=== PATIENT | female | born 1985 | race Hispanic/Latino ===

== ENCOUNTER 2016-10-25 00:28 | Emergency (ER) | payer OTHER ==
[2016-10-25] MEDS ORDERED: Lidocaine 1% w/Epinephrine 1:100K 30 ML VIAL ONE (01:45)
[2016-10-25 02:29] LABS: #Basophils 0.1 thou/uL (0.0-0.2); #Eosinphils 0.1 thou/uL (0.0-0.7); #Lymphocytes 2.7 thou/uL (1.20-3.40); #Monocytes 0.9 thou/uL (0.11-0.59); #Neutrophils 7.7 thou/uL (1.40-6.50); %Basophils 0.9 % (0.0-1.0); %Eosinophils 1.3 % (0.0-10.0); Hematocrit 37.8 % (36.0-47.0); White Blood Cell (WBC) Count 11.5 thou/uL (4.8-10.8)
[2016-10-25 02:35] LABS: ALT (SGPT) 20 U/L (0-55); AST (SGOT) 17 U/L (5-34); Alkaline Phosphatase 81 U/L (40-150); Anion Gap 13 mmol/L (10-20); BUN (Urea Nitrogen) 11 mg/dL (7.0-18.7); Bilirubin, Total 0.2 mg/dL (0.2-1.2); Calc. Creatinine Clearance 0 mL/min (70-130); Carbon Dioxide 23 mmol/L (22-29); Chloride 109 mmol/L (98-107); Estimated GFR-MDRD Greater than 90; Globulin 3.1 g/dL (2.4-3.5); Protein, Total 6.8 g/dL (6.0-8.3)
--- NOTE | 2016-10-25 02:53 | ERRECORD ---
[facility] EMERGENCY RECORD HPI FALL (01:07 DHAM) CHIEF COMPLAINT: Patient presents for evaluation of fall, from height less than 3 feet, landing on hard surface, landing on head, landing on back, landing on buttocks. HISTORIAN: History provided by patient, Additional history obtained from police, mirella has the video of the pt standing on the seat of a toilet and falling backwards landing on her buttocks and onto the occiput. no loc on the video. LOCATION: Symptoms are localized, most severe to c/o faustin, buttock pain bilat and left foot pain. QUALITY: Unable to describe the quality of the pain. TIME COURSE: Sudden onset of symptoms, 1, hours prior to arrival, There has been no change in the patient's symptoms over time. SEVERITY: Current severity of pain rated as 10/10. ASSOCIATED WITH: No associated neck pain, No associated chest pain, No associated abdominal pain, No associated back pain, No associated clavicle pain, No associated shoulder pain, No associated elbow pain, No associated wrist pain, No associated hand pain, No associated finger pain, Associated with hip pain, bilaterally, No associated knee pain, No associated ankle pain, Associated with foot pain, on the left, Associated with contusion(s), to the scalp, No associated laceration(s), No associated deformity, No associated alcohol use, No associated blurred vision, No associated inability to ambulate, No associated inability to bear weight, Associated with headache, No associated loss of consciousness, No associated near syncope, No associated numbness, No associated paresthesias, No associated syncope, No associated tingling, No associated weakness distal to injury, No associated vomiting, Pt has a h/o psychiatric illness and is difficult to get a hx out of. she denies menstrual cycle for 1 year but nurse at [facility] says she had one last month. EXACERBATED BY: Patient's condition exacerbated by movement all over causes pain. RELIEVED BY: Patient's condition relieved by nothing because patient has not tried anything for relief. RISK FACTORS: Risk factors for spinal injury, not applicable for this patient, Risk factors for intracranial bleed, not applicable for this patient. ROS (01:12 DHAM) CONSTITUTIONAL: Negative constitutional review of systems, Historian denies chills, denies fatigue, denies fever. EYES: Negative eye review of systems. ENT: Negative ears, nose, throat review of systems. CARDIOVASCULAR: Negative cardiovascular review of systems, Historian denies chest pain, denies diaphoresis, denies exercise intolerance, denies palpitations. RESPIRATORY: Negative respiratory review of systems, Historian &a-1R&a+25V*p+0X*[id number]*c202B*c15G*c2P*p-0X&a-25V&a+1R Name: Lee Ann Sanches : 1985 F31 MedRec: [id number] AcctNum: [id number] Prepared: Melba Oct 25, 2016 05:28 by Interface Page 1 of 5 pMD [facility] EMERGENCY RECORD denies cough, denies shortness of breath, denies sputum, denies wheezing. GI: Negative gastrointestinal review of systems, Historian denies abdominal pain, denies anorexia, denies appetite changes, denies nausea, denies vomiting. GENITOURINARY FEMALE: Historian denies dysuria, denies frequency, denies hesitancy, denies vaginal bleeding, denies vaginal discharge, denies vaginal itching. MUSCULOSKELETAL: Historian reports arthralgias, reports fall, reports injury, denies myalgias. c/o headache, buttock and left foot pain. SKIN: Negative skin review of systems, Historian denies rash, denies skin lesions. NEUROLOGIC: Negative neurologic review of systems, Historian denies confusion, denies headache. ENDOCRINE: Negative endocrine review of systems. HEMO/LYMPHATIC: Normal hematologic/lymphatic system review. ALLERGIC/IMMUNOLOGIC: Normal allergy/immunologic system review. PSYCHIATRIC: Historian reports emotional lability, is an MR patient and takes several antipsychotics. history is very suspect and variable though she appears ox3 and gives a good hx of the fall. PAST MEDICAL HISTORY (01:18 MEGS) MEDICAL HISTORY: Flu vaccine not up to date, Tetanus immunization up to date, Pneumococcal vaccine not up to date, Past medical history includes history of diabetes, Type I, Past medical history includes pulmonary disease, asthma. FEMALE SURGICAL HISTORY: Surgical history of cholecystectomy, Surgical history of tubal ligation, tooth extraction - upper left molar. PSYCHIATRIC HISTORY: Psychiatric history includes, depression, Psychiatric history includes, anxiety, schizophrenia. SOCIAL HISTORY: Patient denies alcohol use, Patient denies drug use, Patient is a former tobacco user, smoked cigarettes, Patient quit smoking in the past year, Lives, [facility]. KNOWN ALLERGIES No Known Allergies (Unconfirmed) No Known Drug Allergies CURRENT MEDICATIONS benztropine: TABLET : Strength - 1 mg : ORAL Patient Dose: 0.5 mg Oral once a day. (01:19 MEGS) sertraline: TABLET : Strength - 50 mg : ORAL &a-1R&a+25V*p+0X*[id number]*c202B*c15G*c2P*p-0X&a-25V&a+1R Name: Lee Ann Sanches : 1985 F31 MedRec: [id number] AcctNum: [id number] Prepared: Melba Oct 25, 2016 05:28 by Interface Page 2 of 5 pMD [facility] EMERGENCY RECORD Patient Dose: 50 mg Oral once a day. (01:20 MEGS) Latuda: TABLET : Strength - 60 mg : ORAL Patient Dose: 1 tab(s) Oral once a day. (01:20 MEGS) VITAL SIGNS VITAL SIGNS: BP: 128/84, Pulse: 65, Resp: 16, Temp: 97.9 (Oral), Pain: 10, O2 sat: 100 on Room Air, Time: 10/25/2016 00:31. (00:31 MEGS) BP: 124/84, Pulse: 64, Resp: 16, Temp: 98.0 (Oral), Pain: 8, O2 sat: 99 on Room Air, Time: 10/25/2016 01:22. (01:22 MEGS) BP: 128/77, Pulse: 56, Resp: 18, Pain: 7, O2 sat: 100 on Room Air, Time: 10/25/2016 02:28. (02:28 MEGS) BP: 129/85, Pulse: 78, Resp: 18, Temp: 98.4 (Oral), O2 sat: 100 on Room Air, Time: 10/25/2016 02:37. (02:37 MEGS) PHYSICAL EXAM (01:16 [facility]) CONSTITUTIONAL: Vital Signs Reviewed, Patient afebrile, Pulse normal, Blood pressure normal, Respiratory rate normal, Normal pulse oximetry, Patient appears non toxic, Patient appears pain free, Patient alert and oriented to person, place and time, Nursing notes reviewed. she c/o pain to palpation all over and this makes her exam difficult. palpation to the ventral forhead bilat shoulders chest abdomen all tender by her report but she only c/o pain in the head buttocks and left foot. She has a c-collar in place and initially on spine board. with 4 people, we log rolled her to the right while maintaining in-line traction. I examined her spine from c7-sacral area and denied pain. I appreciate no step off or localized pain. she was removed from spine board at 0127. HEAD: Head exam included findings of head atraumatic, normocephalic. EYES: Eye exam included findings of eyelids normal to inspection, Pupils equally round and reactive to light, Extraocular muscles intact, Conjunctiva normal, Sclera normal, Eye exam included findings of anterior chamber clear. ENT: Ear exam normal, external ear normal, tympanic membranes normal, no foreign body, no drainage, no bleeding, hearing normal, Nose exam normal, no nasal deformity, no bleeding from nares, no bleeding from hypopharynx, no foreign body visualized, no septal hematoma, no septal necrosis, No turbinate mucosa discharge, Pharynx exam normal, not injected, no swelling, symmetrical, Uvula exam normal, midline, no edema, Tonsil exam normal, not enlarged, no exudates, Mouth exam normal, mucous membranes moist, no drooling, no lesions, no lacerations, no tongue elevation, teeth normal. NECK: in c-collar at arrival. trachea midline. no ant masses noted. RESPIRATORY CHEST: Respiratory exam included findings of no respiratory distress, Breath sounds clear, No wheezing, No rales, No rhonchi, Breath sounds not diminished, Chest exam included findings of chest movement symmetrical, reports tenderness all over to &a-1R&a+25V*p+0X*[id number]*c202B*c15G*c2P*p-0X&a-25V&a+1R Name: Lee Ann Sanches : 1985 F31 MedRec: [id number] AcctNum: [id number] Prepared: Melba Oct 25, 2016 05:28 by Interface Page 3 of 5 pMD [facility] EMERGENCY RECORD palpation but initially said she was having no pain in the chest. CARDIOVASCULAR: Cardiovascular exam included findings of heart rate regular rate and rhythm, Heart sounds normal, normal S1, normal S2, no murmurs, no rub, no gallop. ABDOMEN FEMALE: Abdominal exam included findings of abdomen tender, diffusely, mild intensity, abdomen is soft but pt reports pain diffusely., Bowel sounds normal, Liver normal, Spleen normal, no distension, no pulsatile masses, no peritoneal signs, no ventral hernia. BACK: Back exam normal. UPPER EXTREMITY: Upper extremity exam normal, Upper extremity exam included findings of inspection normal, no abrasions, no contusions, no deformity, no lacerations, Range of motion normal, Motor strength normal, Sensation intact, Brachial pulse normal, Radial pulse normal. LOWER EXTREMITY: Lower extremity exam normal, Lower extremity exam included findings of inspection normal, no abrasions, no contusions, no deformity, no lacerations, Range of motion normal, Motor strength normal, Sensation intact, Pedal pulse normal, Marti's negative, no edema, no calf tenderness. she reports tenderness to palpation all over the left foot from midfoot distally to all toes. no abrasions, swelling or redness. NEURO: Neuro exam findings include patient oriented to person, place and time, Speech normal, Gait normal, Trevorton coma scale 15, Memory normal, Cranial nerves intact, Deep tendon reflexes normal, no focal motor deficits, no focal sensory deficits. SKIN: Skin exam included findings of skin warm, dry, and normal in color, no rash. LYMPHATIC: Lymphatic exam normal, Lymphatic exam included findings of cervical nodes normal. PSYCHIATRIC: Psychiatric exam included findings of patient oriented to person place and time, affect is labile and cursing frequently at a crying child also in the ED, Judgment poor, Insight poor, Remote memory normal, Recent memory normal, Concentration seems intact, No suicidal ideations, No homicidal ideations. RADIOLOGYINTERPRETATION HEAD: Head CT negative, without contrast, no bleed, no mass, no acute ischemic stroke, no acute changes. (02:29 DHAM) NECK: Cervical spine CT negative, no fracture, no subluxation, no bony lesion, no cord compression. (02:32 DHAM) FEMALE: Pelvis films negative, no fracture, no foreign body, no bony lesion, no diastasis. (02:32 DHAM) LOWER EXTREMITIES: Foot films negative, on the left, no fracture, no dislocation, no foreign body, no bony lesion, no degenerative joint disease. (02:32 DHAM) DOCTOR NOTES TEXT: I have reviewed the video and clearly see the pt falling onto her buttocks and then rolling onto her back and hitting &a-1R&a+25V*p+0X*[id number]*c202B*c15G*c2P*p-0X&a-25V&a+1R Name: Lee Ann Sanches : 1985 F31 MedRec: [id number] AcctNum: [id number] Prepared: SatOct 25, 2016 05:28 by Interface Page 4 of 5 pMD [facility] EMERGENCY RECORD her occiput on the concrete floor. she is noted to have no loc on the video and does recall the fall. I see no mechanism that would account for chest or abd pain. (01:26 DHAM) After receiving the normal CT c-spine report, we removed the c-collar. Pt is very cooperative at this time and her active rom is full and pain free in all directions and there is no pain to palpation from c2 to c7. Collar is left off at 0222. (02:34 DHAM) PROBLEM LIST No recorded problems DIAGNOSIS (02:37 DHAM) FINAL: PRIMARY: contusion head, ADDITIONAL: Buttock contusion, Foot contusion. PRESCRIPTION No recorded prescriptions DISPOSITION PATIENT: Disposition Type: Discharge, Disposition: *Discharge Home. (02:37 DHAM) Patient left the department. (02:46 MEGS) Whitley: DIONY=MD French, Stephen MEGS=ARUN Matson, Fabiana &a-1R&a+25V*p+0X*[id number]*c202B*c15G*c2P*p-0X&a-25V&a+1R Name: Lee Ann Sanches : 1985 F31 MedRec: [id number] AcctNum: [id number] Prepared: SatOct 25, 2016 05:28 by Interface Page 5 of 5 pMD MTDD
--- NOTE | 2016-10-25 02:56 | PICIS ---
[facility] EMERGENCY RECORD TRIAGE (SatOct 25, 2016 00:32 MEGS) TRIAGE NOTES: patient fell in shower, reportedly hit head, patient complains of left foot pain, neck pain, and sacral pain. (SatOct 25, 2016 00:32 MEGS) PATIENT: NAME: Lee Ann Sanches, AGE: 31, GENDER: female, : Sat 1985, TIME OF GREET: SatOct 25, 2016 00:29, PREFERRED LANGUAGE: Slovenian, ETHNICITY: or , ECODE BILLING MAP: [facility], SSN: [id number], Zip Code: [address], KG WEIGHT: 95.25, PHONE: , , , PERSON ID: [id number], PAYMENT: [facility] Medicaid, PCP: Unknown. (SatOct 25, 2016 00:32 MEGS) COMPLAINT: FALL. (SatOct 25, 2016 00:32 MEGS) ADMISSION: URGENCY: 3 Urgent, ADMISSION SOURCE: Assisted/Detention, TRANSPORT: AMBULANCE - [facility], BED: ER -04. (SatOct 25, 2016 00:32 MEGS) ASSESSMENT: Assessment: patient fell from toilet while trying to get fresh water; patient reports feeling tried after taking Lunesta., Symptoms began 10/24/2016 23:00. (01:18 MEGS) PAIN: Patient complains of pain described as, aching, on a scale 0-10 patient rates pain as 8, Pain is constant. (01:18 MEGS) IMMUNIZATIONS: Flu vaccine not up to date, Tetanus immunization up to date, Pneumococcal vaccine not up to date. (01:18 MEGS) TRIAGE SCREENING: Patient denies suicidal ideation, Patient denies presence of domestic violence. (01:18 MEGS) PROVIDERS: TRIAGE NURSE: Fabiana Matson RN. (SatOct 25, 2016 00:32 MEGS) VITAL SIGNS: BP 128/84, Pulse 65, Resp 16, Temp 97.9, (Oral), Pain 10, O2 Sat 100, on Room Air, Time 10/25/2016 00:31. (00:31 MEGS) PREVIOUS VISIT ALLERGIES: No Known Drug Allergies. (SatOct 25, 2016 00:32 MEGS) No Known Drug Allergies. (01:18 MEGS) KNOWN ALLERGIES No Known Allergies (Unconfirmed) No Known Drug Allergies CURRENT MEDICATIONS benztropine: TABLET : Strength - 1 mg : ORAL Patient Dose: 0.5 mg Oral once a day. (01:19 MEGS) sertraline: TABLET : Strength - 50 mg : ORAL Patient Dose: 50 mg Oral once a day. (01:20 MEGS) Latuda: TABLET : Strength - 60 mg : ORAL Patient Dose: 1 tab(s) Oral once a day. (01:20 MEGS) VITAL SIGNS &a-1R&a+25V*p+0X*q1781H*c202B*c15G*c2P*p-0X&a-25V&a+1R Name: Lee Ann Sanches : 1985 F31 MedRec: [id number] AcctNum: [id number] Prepared: [facility] Oct 25, 2016 05:34 by Interface Page 1 of 12 pMD [facility] EMERGENCY RECORD VITAL SIGNS: BP: 128/84, Pulse: 65, Resp: 16, Temp: 97.9 (Oral), Pain: 10, O2 sat: 100 on Room Air, Time: 10/25/2016 00:31. (00:31 MEGS) BP: 124/84, Pulse: 64, Resp: 16, Temp: 98.0 (Oral), Pain: 8, O2 sat: 99 on Room Air, Time: 10/25/2016 01:22. (01:22 MEGS) BP: 128/77, Pulse: 56, Resp: 18, Pain: 7, O2 sat: 100 on Room Air, Time: 10/25/2016 02:28. (02:28 MEGS) BP: 129/85, Pulse: 78, Resp: 18, Temp: 98.4 (Oral), O2 sat: 100 on Room Air, Time: 10/25/2016 02:37. (02:37 MEGS) NURSING ASSESSMENT: FALL RISK (00:35 MEGS) FALL RISK: Fall risk assessment findings include: History of falls (5), No bed rest greater than 2 days (0), No use of level of consciousness altering agents with mentation or cognitive changes (0), No change in blood pressure (0), No sensory deficits (0), Impaired mobility (3), Neurologic diagnosis (3), No elimination problems (0), No confusion (0), Total score 11. NURSING ASSESSMENT: NEURO (00:35 MEGS) GCS: (6) Obeying command:, (5) Orientated:, (4) Spontaneous eye opening. CONSTITUTIONAL: Patient arrives, via [facility], Unsteady gait, Lift to cart, Inability to ambulate, History obtained from patient, Patient appears, in distress due to pain, Patient cooperative, Patient alert, Oriented to person, place and time, Skin warm, Skin dry, Skin normal in color, Mucous membranes pink, Mucous membranes moist, Patient is well-groomed, Patient complains of S/p Fall, patient complains of left foot pain, neck pain, and lower back pain s/p fall off of toilet. patient is an [facility] patient. Patient reports climbing up onto toilet to get fresh water and falling. patient hit head, no LOC noted. PAIN: aching pain, Onset of pain 10/24/2016 23:15, constant, Pain exacerbated by, palpation, pressure, Nothing has been tried to alleviate the pain. NEURO: Pupils equally round and reactive to light, Left pupil 3 mm in size, Right pupil 3 mm in size, Able to close eyes, Face symmetrical, Speech normal, no ptosis, no nystagmus, no visual changes, no facial droop, no facial numbness, no swelling, no paresthesias, GCS:, Eye opening: (4) - Spontaneous, Verbal: (5) - Oriented/conversive, Motor: (6) - Obeys commands/Spontaneous, Hand grasps equal, Upper extremity strength strong, no numbness to upper extremities, Lower extremity strength, weak on the left, weak on the right, Patient reports inability to lift legs d/t pain, Foot press equal, no numbness to lower extremities, no associated dizziness present, no associated fever, no associated memory loss, no associated loss of consciousness, no associated motor ability changes, no associated &a-1R&a+25V*p+0X*n2033F*c202B*c15G*c2P*p-0X&a-25V&a+1R Name: Lee Ann Sanches : 1985 F31 MedRec: [id number] AcctNum: [id number] Prepared: Melba Oct 25, 2016 05:34 by Interface Page 2 of 12 pMD [facility] EMERGENCY RECORD neck stiffness, no associated nausea, no associated seizures, no associated syncopal episode, no associated vomiting, no associated weakness. ENT: Ear assessment findings include ear normal to inspection, no drainage from ears, no complaint of hearing deficit, no complaint of tinnitus, no complaint of dizziness, no myringotomy tubes, no foreign body, no recent air travel, Nasal assessment findings include nose normal to inspection, Sinuses normal, Nasal mucosa normal, no bleeding, no discharge, no complaint of congestion, no complaint of foreign body, Mouth and throat assessment findings include mouth inspection normal, Uvula normal, Tonsils normal, Mucous membranes pink, and moist, Able to swallow, Speech normal, no associated fever, Associated with headache, no associated decrease in oral intake. SAFETY: Side rails up, Cart/Stretcher in lowest position, Call light within reach, Hospital ID band on. NURSING ASSESSMENT: SKIN (01:23 MEGS) SKIN: Skin assessment findings include skin warm, Skin dry, Skin normal in color, Inspection findings include no abrasions, Inspection findings include no deformity, Inspection findings include no bruising, Inspection findings include: No pressure ulcer to the shoulder, Inspection findings include no pressure ulcer to the elbow, Inspection findings include no pressure ulcers to the hip, Inspection findings include no pressure ulcer to the sacrum, Inspection findings include no pressure ulcer to the heel, Inspection findings include no pressure ulcer, Inspection findings include no rash, Inspection findings include no signs of infection, Inspection findings include no signs of trauma, Inspection findings include no swelling. PB SCALE: (4) Sensory perception has no impairment, (3) Skin is occasionally moist, (4) Patient walks frequently, (4) No mobility limitations, (3) Adequate nutrition, (3) Patient has no apparent problem moving. SAFETY: Side rails up, Cart/Stretcher in lowest position, Call light within reach, Hospital ID band on. NURSING PROCEDURE: BEDSIDE SIRS TESTING (02:32 MEGS) SCORES: Heart Rate 55-109 (0), Temp range 96.8-101.1 (0), respiratory rate 12-24 (0), Latest WBC 3-14.9 (0), Mental Status altered: no (0), Yes, Infection or Suspected Infection. NURSING PROCEDURE: ENGINE LATHE SET UP OPERATOR TOOL (00:40 MEGS) PATIENT IDENTIFIER: Patient actively involved in identification process, Patient's identity verified by patient stating name, Patient's identity verified by patient stating date, Patient's identity verified by hospital ID bracelet. ENGINE LATHE SET UP OPERATOR TOOL: Cardiac monitoring indicated for s/p fall, Patient placed on site monitor, Patient placed on non-invasive blood pressure monitor, with disposable blood pressure cuff applied, Patient placed on continuous pulse oximetry, Adult/pediatric &a-1R&a+25V*p+0X*d2538T*c202B*c15G*c2P*p-0X&a-25V&a+1R Name: Lee Ann Sanches : 1985 F31 MedRec: [id number] AcctNum: [id number] Prepared: [facility] Oct 25, 2016 05:34 by Interface Page 3 of 12 pMD [facility] EMERGENCY RECORD oxisensor applied. SAFETY: Side rails up, Cart/Stretcher in lowest position, Call light within reach, Hospital ID band on. NURSING PROCEDURE: DISCHARGE NOTE (02:44 MEGS) DISCHARGE: Patient discharged in police custody, ambulating without assistance, transported via police, accompanied by law enforcement, Discharge instructions given to patient, Discharge instructions given to Director Of Product Design, Above person(s) verbalized understanding of discharge instructions and follow-up care, Patient treated and evaluated by physician. BELONGINGS: Belongings and valuables with patient at time of discharge include:, Belongings remain with patient, Valuables remain with patient. SAFETY: Side rails up, Cart/Stretcher in lowest position, Call light within reach, Hospital ID band on. NURSING PROCEDURE: IV PATIENT IDENITIFIER: Patient actively involved in identification process, Patient's identity verified by patient stating name, Patient's identity verified by patient stating date, Patient's identity verified by hospital ID bracelet. (00:32 MEGS) IV SITE 1: IV therapy indicated for hydration, IV therapy indicated for medication administration, IV established, to the right antecubital, using an 18 gauge catheter, Saline lock established, Labs drawn at time of placement, labeled in the presence of the patient and sent to lab, Notes: Est. IT PROFESSIONAL by EMS. (00:32 MEGS) FOLLOW-UP SITE 1: After procedure, no drainage at IV site, After procedure, no swelling at IV site, After procedure, no redness at IV site, IV discontinued, due to patient being discharged, catheter intact, After removal, sterile dressing applied to IV site, physician was notified. (02:40 MEGS) SAFETY: Side rails up, Cart/Stretcher in lowest position, Call light within reach, Hospital ID band on. (00:32 MEGS) NURSING PROCEDURE: SPINE PRECAUTIONS PATIENT IDENTIFIER: Patient actively involved in identification process, Patient's identity verified by patient stating name, Patient's identity verified by patient stating date, Patient's identity verified by hospital ID bracelet. (00:34 MEGS) SPINE PRECAUTIONS: Spinal precautions indicated by s/p fall, Cervical collar applied, Patient placed on long board. (00:34 MEGS) REMOVAL: Long board removed, by order from placed by EMS, removed by MD GIOVANNI. (00:34 MEGS) Cervical collar removed, by order from Placed by EMS, removed by MD GIOVANNI. (02:33 MEGS) FOLLOW-UP: After procedure, airway patent, After procedure, no numbness to extremities, After procedure, no tingling to extremities. (00:34 MEGS) &a-1R&a+25V*p+0X*i7938F*c202B*c15G*c2P*p-0X&a-25V&a+1R Name: Lee Ann Sanches : 1985 F31 MedRec: [id number] AcctNum: [id number] Prepared: Melba Oct 25, 2016 05:34 by Interface Page 4 of 12 pMD [facility] EMERGENCY RECORD SAFETY: Side rails up, Cart/Stretcher in lowest position, Call light within reach, Hospital ID band on. (00:34 MEGS) NURSING PROCEDURE: TRANSPORT TO TESTS PATIENT IDENTIFIER: Patient actively involved in identification process, Patient's identity verified by patient stating name, Patient's identity verified by patient stating date, Patient's identity verified by hospital ID bracelet. (01:47 MEGS) TRANSPORT TO TESTS: Transport indicated to facilitate diagnosis, Patient transported to CT scan, via cart, Accompanied by x-ray thin film technician. (01:47 MEGS) FOLLOW-UP: After procedure, patient returned to emergency department. (02:15 KSPL) SAFETY: Side rails up, Cart/Stretcher in lowest position, Call light within reach, Hospital ID band on. (01:47 MEGS) NURSING PROCEDURE: URINE COLLECTION (01:03 MEGS) PATIENT IDENTIFIER: Patient actively involved in identification process, Patient's identity verified by patient stating name, Patient's identity verified by patient stating date, Patient's identity verified by hospital ID bracelet. URINE COLLECTION FEMALE: Urine collection indicated for Facilitate diagnosis, Urine collected by void, urine yellow in color, and clear, no sediment noted, Specimen labeled in the presence of the patient and sent to lab, Specimen obtained for culture labeled in the presence of the patient and sent to lab. SAFETY: Side rails up, Cart/Stretcher in lowest position, Call light within reach, Hospital ID band on. ORDER DETAILS Order Name: ENGINE LATHE SET UP OPERATOR TOOL ED, Status: Done, Time: 00:52 10/25/2016, User: FRANCISCO, - Ordered for: MD Braswell Darren, - Entered by: MD Braswell Darren - [facility] Oct 25, 2016 00:35, - Quantity: 1, Order Name: CBC with Differential, Status: Active, Time: 00:35 10/25/2016, User: DIONY, - Ordered for: MD Braswell Darren, - Entered by: MD Braswell Darren - [facility] Oct 25, 2016 00:35, - Quantity: 1, Order Name: Comprehensive Metabolic Panel, Status: Active, Time: 00:35 10/25/2016, User: DIONY, - Ordered for: MD Braswell Darren, - Entered by: MD Braswell Darren [facility] Oct 25, 2016 00:35, - Quantity: 1, Order Name: CT Brain WO Con, Status: Active, Time: 00:35 10/25/2016, User: DIONY, - Ordered for: MD Braswell Darren, - Entered by: MD Braswell Darren [facility] Oct 25, 2016 00:35, &a-1R&a+25V*p+0X*t1779L*c202B*c15G*c2P*p-0X&a-25V&a+1R Name: Lee Ann Sanches : 1985 F31 MedRec: [id number] AcctNum: [id number] Prepared: SatOct 25, 2016 05:34 by Interface Page 5 of 12 pMD [facility] EMERGENCY RECORD - Quantity: 1, Order Name: CT Cervical Spine WO Con, Status: Active, Time: 00:35 10/25/2016, User: DIONY, - Ordered for: MD Braswell Darren, - Entered by: MD Braswell Darren - [facility] Oct 25, 2016 00:35, - Quantity: 1, Order Name: ERRT Pulse Oximeter ER, Status: Active, Time: 00:35 10/25/2016, User: DIONY, - Ordered for: MD Braswell Darren, - Entered by: MD Braswell Darren - [facility] Oct 25, 2016 00:35, - Quantity: 1, Order Name: Test, Serum (BHCG), Status: Canceled, Time: 01:06 10/25/2016, User: FRANCISCO, - Ordered for: MD Braswell Darren, - Entered by: MD Braswell Darren - [facility] Oct 25, 2016 00:35, - Quantity: 1, Order Name: Test, Urine (BHCG), Status: Active, Time: 01:05 10/25/2016, User: FRANCISCO, - Ordered for: MD Braswell Darren, - Entered by: ARUN Matson Megan - [facility] Oct 25, 2016 01:05, - Quantity: 1, Order Name: SALINE LOCK, Status: Done, Time: 01:38 10/25/2016, User: FRANCISCO, - Ordered for: MD Braswell Darren, - Entered by: ARUN Matson Megan - [facility] Oct 25, 2016 01:38, - Quantity: 1, Order Name: Urinalysis w/ Rflx Microscopic, Status: Active, Time: 01:06 10/25/2016, User: FRANCISCO, - Ordered for: MD Braswell Darren, - Entered by: ARUN Matson Megan - [facility] Oct 25, 2016 01:06, - Quantity: 1, Order Name: XR Foot Lt 3 View STANDARD, Status: Active, Time: 00:36 10/25/2016, User: DIONY, - Ordered for: MD Braswell Darren, - Entered by: MD Braswell Darren - [facility] Oct 25, 2016 00:36, - Quantity: 1, Order Name: XR Pelvis AP STANDARD, Status: Active, Time: 00:35 10/25/2016, User: DIONY, - Ordered for: MD Braswell Darren, - Entered by: MD Braswell Darren - [facility] Oct 25, 2016 00:35, - Quantity: 1. HPI FALL (01:07 [facility]) CHIEF COMPLAINT: Patient presents for evaluation of fall, from height less than 3 feet, landing on hard surface, landing on head, landing on back, landing on buttocks. HISTORIAN: History provided by patient, Additional history obtained from police, hvac technician residential has the video of the pt standing on the seat of a toilet and falling backwards landing on her buttocks and &a-1R&a+25V*p+0X*a6575J*c202B*c15G*c2P*p-0X&a-25V&a+1R Name: Lee Ann Sanches : 1985 F31 MedRec: [id number] AcctNum: [id number] Prepared: [facility] Oct 25, 2016 05:34 by Interface Page 6 of 12 pMD [facility] EMERGENCY RECORD onto the occiput. no loc on the video. LOCATION: Symptoms are localized, most severe to c/o faustin, buttock pain bilat and left foot pain. QUALITY: Unable to describe the quality of the pain. TIME COURSE: Sudden onset of symptoms, 1, hours prior to arrival, There has been no change in the patient's symptoms over time. SEVERITY: Current severity of pain rated as 10/10. ASSOCIATED WITH: No associated neck pain, No associated chest pain, No associated abdominal pain, No associated back pain, No associated clavicle pain, No associated shoulder pain, No associated elbow pain, No associated wrist pain, No associated hand pain, No associated finger pain, Associated with hip pain, bilaterally, No associated knee pain, No associated ankle pain, Associated with foot pain, on the left, Associated with contusion(s), to the scalp, No associated laceration(s), No associated deformity, No associated alcohol use, No associated blurred vision, No associated inability to ambulate, No associated inability to bear weight, Associated with headache, No associated loss of consciousness, No associated near syncope, No associated numbness, No associated paresthesias, No associated syncope, No associated tingling, No associated weakness distal to injury, No associated vomiting, Pt has a h/o psychiatric illness and is difficult to get a hx out of. she denies menstrual cycle for 1 year but nurse at shelter says she had one last month. EXACERBATED BY: Patient's condition exacerbated by movement all over causes pain. RELIEVED BY: Patient's condition relieved by nothing because patient has not tried anything for relief. RISK FACTORS: Risk factors for spinal injury, not applicable for this patient, Risk factors for intracranial bleed, not applicable for this patient. ROS (01:12 DHA) CONSTITUTIONAL: Negative constitutional review of systems, Historian denies chills, denies fatigue, denies fever. EYES: Negative eye review of systems. ENT: Negative ears, nose, throat review of systems. CARDIOVASCULAR: Negative cardiovascular review of systems, Historian denies chest pain, denies diaphoresis, denies exercise intolerance, denies palpitations. RESPIRATORY: Negative respiratory review of systems, Historian denies cough, denies shortness of breath, denies sputum, denies wheezing. GI: Negative gastrointestinal review of systems, Historian denies abdominal pain, denies anorexia, denies appetite changes, denies nausea, denies vomiting. GENITOURINARY FEMALE: Historian denies dysuria, denies frequency, denies hesitancy, denies vaginal bleeding, denies vaginal discharge, denies vaginal itching. &a-1R&a+25V*p+0X*z6401Q*c202B*c15G*c2P*p-0X&a-25V&a+1R Name: Lee Ann Sanches : 1985 F31 MedRec: [id number] AcctNum: [id number] Prepared: Melba Oct 25, 2016 05:34 by Interface Page 7 of 12 pMD [facility] EMERGENCY RECORD MUSCULOSKELETAL: Historian reports arthralgias, reports fall, reports injury, denies myalgias. c/o headache, buttock and left foot pain. SKIN: Negative skin review of systems, Historian denies rash, denies skin lesions. NEUROLOGIC: Negative neurologic review of systems, Historian denies confusion, denies headache. ENDOCRINE: Negative endocrine review of systems. HEMO/LYMPHATIC: Normal hematologic/lymphatic system review. ALLERGIC/IMMUNOLOGIC: Normal allergy/immunologic system review. PSYCHIATRIC: Historian reports emotional lability, is an MR patient and takes several antipsychotics. history is very suspect and variable though she appears ox3 and gives a good hx of the fall. PAST MEDICAL HISTORY (:18 MEGS) MEDICAL HISTORY: Flu vaccine not up to date, Tetanus immunization up to date, Pneumococcal vaccine not up to date, Past medical history includes history of diabetes, Type I, Past medical history includes pulmonary disease, asthma. FEMALE SURGICAL HISTORY: Surgical history of cholecystectomy, Surgical history of tubal ligation, tooth extraction - upper left molar. PSYCHIATRIC HISTORY: Psychiatric history includes, depression, Psychiatric history includes, anxiety, schizophrenia. SOCIAL HISTORY: Patient denies alcohol use, Patient denies drug use, Patient is a former tobacco user, smoked cigarettes, Patient quit smoking in the past year, Lives, [place]. PHYSICAL EXAM (:16 DHA) CONSTITUTIONAL: Vital Signs Reviewed, Patient afebrile, Pulse normal, Blood pressure normal, Respiratory rate normal, Normal pulse oximetry, Patient appears non toxic, Patient appears pain free, Patient alert and oriented to person, place and time, Nursing notes reviewed. she c/o pain to palpation all over and this makes her exam difficult. palpation to the ventral forhead bilat shoulders chest abdomen all tender by her report but she only c/o pain in the head buttocks and left foot. She has a c-collar in place and initially on spine board. with 4 people, we log rolled her to the right while maintaining in-line traction. I examined her spine from c7-sacral area and denied pain. I appreciate no step off or localized pain. she was removed from spine board at 0127. HEAD: Head exam included findings of head atraumatic, normocephalic. EYES: Eye exam included findings of eyelids normal to inspection, Pupils equally round and reactive to light, Extraocular muscles intact, Conjunctiva normal, Sclera normal, Eye exam included findings &a-1R&a+25V*p+0X*s6173I*c202B*c15G*c2P*p-0X&a-25V&a+1R Name: Lee Ann Sanches : 1985 F31 MedRec: [id number] AcctNum: [id number] Prepared: Mel[facility] Oct 25, 2016 05:34 by Interface Page 8 of 12 pMD [facility] EMERGENCY RECORD of anterior chamber clear. ENT: Ear exam normal, external ear normal, tympanic membranes normal, no foreign body, no drainage, no bleeding, hearing normal, Nose exam normal, no nasal deformity, no bleeding from nares, no bleeding from hypopharynx, no foreign body visualized, no septal hematoma, no septal necrosis, No turbinate mucosa discharge, Pharynx exam normal, not injected, no swelling, symmetrical, Uvula exam normal, midline, no edema, Tonsil exam normal, not enlarged, no exudates, Mouth exam normal, mucous membranes moist, no drooling, no lesions, no lacerations, no tongue elevation, teeth normal. NECK: in c-collar at arrival. trachea midline. no ant masses noted. RESPIRATORY CHEST: Respiratory exam included findings of no respiratory distress, Breath sounds clear, No wheezing, No rales, No rhonchi, Breath sounds not diminished, Chest exam included findings of chest movement symmetrical, reports tenderness all over to palpation but initially said she was having no pain in the chest. CARDIOVASCULAR: Cardiovascular exam included findings of heart rate regular rate and rhythm, Heart sounds normal, normal S1, normal S2, no murmurs, no rub, no gallop. ABDOMEN FEMALE: Abdominal exam included findings of abdomen tender, diffusely, mild intensity, abdomen is soft but pt reports pain diffusely., Bowel sounds normal, Liver normal, Spleen normal, no distension, no pulsatile masses, no peritoneal signs, no ventral hernia. BACK: Back exam normal. UPPER EXTREMITY: Upper extremity exam normal, Upper extremity exam included findings of inspection normal, no abrasions, no contusions, no deformity, no lacerations, Range of motion normal, Motor strength normal, Sensation intact, Brachial pulse normal, Radial pulse normal. LOWER EXTREMITY: Lower extremity exam normal, Lower extremity exam included findings of inspection normal, no abrasions, no contusions, no deformity, no lacerations, Range of motion normal, Motor strength normal, Sensation intact, Pedal pulse normal, Marti's negative, no edema, no calf tenderness. she reports tenderness to palpation all over the left foot from midfoot distally to all toes. no abrasions, swelling or redness. NEURO: Neuro exam findings include patient oriented to person, place and time, Speech normal, Gait normal, Sherri coma scale 15, Memory normal, Cranial nerves intact, Deep tendon reflexes normal, no focal motor deficits, no focal sensory deficits. SKIN: Skin exam included findings of skin warm, dry, and normal in color, no rash. LYMPHATIC: Lymphatic exam normal, Lymphatic exam included findings of cervical nodes normal. PSYCHIATRIC: Psychiatric exam included findings of patient oriented to person place and time, affect is labile and cursing frequently at a crying child also in the ED, Judgment poor, Insight poor, Remote memory normal, Recent memory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
[2016-10-25 03:02] LABS: Bilirubin Negative (Negative); Blood, Urine Negative (Negative); Glucose, Urine (Dipstick) Negative (Negative); Ketone, Urine Negative (Negative); Nitrite Negative (Negative); Protein, Urine (Dipstick) Negative (Neg-Trace); Urobilinogen 0.2 mg/dL (0.2-1.0)
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
--- NOTE | 2016-10-25 07:40 | RAD ---
PELVIS 1 VIEW: DATE: 10/25/16. FINDINGS: The bony pelvis appears intact with no sign of fracture. The symphysis shows no widening or offset and the SI joints are symmetrical. The arcuate lines of the sacrum appear intact. Subtle sacral an d coccygeal fractures would be missed on this study. The hips appear normal and symmetrical. IMPRESSION: No acute traumatic findings. POS: HOME
--- NOTE | 2016-10-25 07:41 | RAD ---
LEFT FOOT 3 VIEWS: DATE: 10/25/16. FINDINGS: No fracture, periosteal reaction, or acute bony change was appreciated at this time. All bones appe ared intact. If pain should persist, delayed repeat images should be obtained. IMPRESSION: No acute traumatic findings. POS: HOME
== END 2016-10-25 02:42 | disposition home or self-care (01) ==
LOC: BURERS 00:28
DX: S30.0XXA Contusion of lower back and pelvis, initial encounter (principal); S00.93XA Contusion of unspecified part of head, initial encounter; S90.32XA Contusion of left foot, initial encounter; E10.9 Type 1 diabetes mellitus without complications; F32.9 Major depressive disorder, single episode, unspecified; J45.909 Unspecified asthma, uncomplicated; W17.89XA Other fall from one level to another, initial encounter
CPT/HCPCS: 70450; 72125; 72170; 80053; 81003; 81025; 84703; 85025; 94760; J2001

== ENCOUNTER 2019-03-20 13:26 | Emergency (ER) | payer OTHER ==
[2019-03-20 13:54] LABS: #Lymphocytes 1.7 thou/uL (1.20-3.40); #Monocytes 0.9 thou/uL (0.11-0.59); #Neutrophils 7.1 thou/uL (1.40-6.50); %Basophils 0.4 % (0.0-1.0); %Eosinophils 0.2 % (0.0-10.0); %Lymphocytes 17.7 % (21.0-51.0); %Monocytes 9.5 % (0.0-10.0); %Neutrophils 72.2 % (42.0-75.0); Hemoglobin 10.3 g/dL (12.0-16.0); Mean Corpuscular HGB CONC 31.4 g/dL (32.0-36.0); Mean Corpuscular Hemoglobin 25.3 pg (27.0-31.0); Mean Corpuscular Volume 80.4 fL (78.0-98.0); Mean Platelet Volume 7.2 fL (7.4-10.4); Platelet Count 280 thou/uL (130-400); RBC Distribution Width 14.3 % (11.5-14.5); Red Blood Cell (RBC) Count 4.07 mill/uL (4.20-5.40); White Blood Cell (WBC) Count 9.8 thou/uL (4.8-10.8)
[2019-03-20 14:01] LABS: Pregnancy Test - Urine (BHCG) Negative (Negative); Pregu Control Background? CLEAR/WHITE (CLR/WHITE); Pregu Control Bar Appear? YES (CONTROL BAR); Specific Gravity 1.006 (1.002-1.036)
[2019-03-20 14:02] LABS: Bilirubin Negative (Negative); Blood, Urine Trace (Negative); Clarity Clear (Clear); Glucose, Urine (Dipstick) Negative (Negative); Leukocyte Small (Negative); Nitrite Negative (Negative); Protein, Urine (Dipstick) Trace mg/dL (Neg-Trace); Specific Gravity, Urine 1.006 (1.005-1.030); Urobilinogen 0.2 mg/dL (0.2-1.0)
[2019-03-20 14:05] LABS: Bacteria/HPF 1+ HPF (None Seen); RBC/HPF 0-3 HPF (0-3); Squamous Epithelial 0-3 HPF (0-3)
[2019-03-20 14:08] LABS: Acetaminophen Less than 6.0 mcg/mL (10.0-30.0); Alcohol Less than 10 mg/dL (Less than 10); Salicylate Less than 8.0 mg/dL (15.0-30.0)
[2019-03-20 14:11] LABS: ALT (SGPT) 22 U/L (8-55); AST (SGOT) 21 U/L (5-34); Albumin 3.3 g/dL (3.5-5.0); Alkaline Phosphatase 73 U/L (40-150); Anion Gap 12 mmol/L (10-20); BUN (Urea Nitrogen) 9 mg/dL (7.0-18.7); Bilirubin, Total 0.2 mg/dL (0.2-1.2); Calc. Creatinine Clearance 0 mL/min (70-130); Calcium 8.9 mg/dL (7.8-10.44); Carbon Dioxide 27 mmol/L (22-29); Chloride 97 mmol/L (98-107); Estimated GFR-MDRD 87; Glucose 97 mg/dL (70-105); Lipase 11 U/L (8-78); Protein, Total 7.3 g/dL (6.0-8.3); Sodium 133 mmol/L (136-145)
[2019-03-20 14:12] LABS: Potassium 2.6 mmol/L (3.5-5.1)
[2019-03-20] MEDS ORDERED: Potassium Chloride 20 MEQ TAB ONE (14:31)
[2019-03-20] MEDS ORDERED: Potassium Chloride 20 MEQ/100 ML PREMIX BAG ONE (14:35)
[2019-03-20 14:41] LABS: Cocaine Metabolite Screen Not Detected (NotDetected); Phencyclidine (PCP) Not Detected (NotDetected); THC/Cannabinoid Screen Not Detected (NotDetected)
[2019-03-20 14:42] LABS: Amphetamine Not Detected (NotDetected); Barbiturates Screen Not Detected (NotDetected); Benzodiazepine Screen Not Detected (NotDetected); Medtox Control Line Valid? VALID (VALID); Methadone Not Detected (NotDetected); Methamphetamine Not Detected (NotDetected); Opiate Screen Not Detected (NotDetected); Oxycodone Screen Not Detected (NotDetected); Tricyclic Screen Not Detected (NotDetected)
== END 2019-03-20 15:02 | disposition home or self-care (01) ==
LOC: BURERS 13:26
DX: R11.2 Nausea with vomiting, unspecified (principal); E10.9 Type 1 diabetes mellitus without complications; J45.909 Unspecified asthma, uncomplicated; F41.9 Anxiety disorder, unspecified; F20.9 Schizophrenia, unspecified; F17.210 Nicotine dependence, cigarettes, uncomplicated; Z79.899 Other long term (current) drug therapy
CPT/HCPCS: 80053; 80306; 80307; 81003; 81015; 81025; 83690; 85025; 87077; 87086; 87186; 96374; J3480

== ENCOUNTER 2019-07-14 06:03 | Emergency (ER) | payer OTHER ==
[2019-07-14 06:20] LABS: Pregnancy Test - Urine (BHCG) Negative (Negative); Pregu Control Background? CLEAR/WHITE (CLR/WHITE); Pregu Control Bar Appear? YES (CONTROL BAR); Specific Gravity 1.002 (1.002-1.036)
== END 2019-07-14 06:28 | disposition home or self-care (01) ==
LOC: BURERS 06:03
DX: F29 Unspecified psychosis not due to a substance or known physiological condition (principal); E10.9 Type 1 diabetes mellitus without complications; J45.909 Unspecified asthma, uncomplicated; F32.9 Major depressive disorder, single episode, unspecified; F41.9 Anxiety disorder, unspecified; F20.9 Schizophrenia, unspecified; F17.210 Nicotine dependence, cigarettes, uncomplicated
CPT/HCPCS: 81025; 99285

== ENCOUNTER 2019-08-04 16:26 | Emergency (ER) | payer OTHER ==
[2019-08-04 17:05] LABS: Pregnancy Test - Urine (BHCG) Negative (Negative)
[2019-08-04 17:06] LABS: Pregu Control Background? CLEAR/WHITE (CLR/WHITE); Pregu Control Bar Appear? YES (CONTROL BAR); Specific Gravity 1.005 (1.002-1.036)
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
== END 2019-08-04 17:35 | disposition home or self-care (01) ==
LOC: BURERS 16:26
DX: S92.534A Nondisplaced fracture of distal phalanx of right lesser toe(s), initial encounter for closed fracture (principal); E11.9 Type 2 diabetes mellitus without complications; F41.9 Anxiety disorder, unspecified; F20.9 Schizophrenia, unspecified; F32.9 Major depressive disorder, single episode, unspecified; F17.210 Nicotine dependence, cigarettes, uncomplicated; Z79.899 Other long term (current) drug therapy; W22.8XXA Striking against or struck by other objects, initial encounter
CPT/HCPCS: 81025

== ENCOUNTER 2019-11-24 12:39 | Emergency (ER) | payer OTHER ==
[2019-11-24 13:06] LABS: Bilirubin Negative (Negative); Blood, Urine Negative (Negative); Clarity Slightly Cloudy (Clear); Glucose, Urine (Dipstick) Negative (Negative); Leukocyte Trace (Negative); Nitrite Negative (Negative); Protein, Urine (Dipstick) Negative (Neg-Trace); Urobilinogen 0.2 mg/dL (Less than 2)
[2019-11-24 13:07] LABS: Pregnancy Test - Urine (BHCG) Negative (Negative); Pregu Control Background? CLEAR/WHITE (CLR/WHITE); Pregu Control Bar Appear? YES (CONTROL BAR)
[2019-11-24 13:19] LABS: Bacteria/HPF Rare-Few HPF (None Seen); RBC/HPF None Seen HPF (0-3); Transitional Epithelial 0-3 HPF (None Seen); WBC/HPF 0-3 HPF (0-3)
== END 2019-11-24 13:18 | disposition home or self-care (01) ==
LOC: BURERS 12:39
DX: R10.30 Lower abdominal pain, unspecified (principal); F41.9 Anxiety disorder, unspecified; F32.9 Major depressive disorder, single episode, unspecified; F20.9 Schizophrenia, unspecified; F17.210 Nicotine dependence, cigarettes, uncomplicated; E11.9 Type 2 diabetes mellitus without complications; Z79.899 Other long term (current) drug therapy
CPT/HCPCS: 81003; 81015; 81025; 99284

== ENCOUNTER 2020-06-20 23:24 | Emergency (ER) | payer OTHER ==
[2020-06-20 23:54] LABS: Bilirubin Negative (Negative); Blood, Urine Small (Negative); Clarity Clear (Clear); Glucose, Urine (Dipstick) Negative (Negative); Ketone, Urine Negative (Negative); Leukocyte Trace (Negative); Nitrite Negative (Negative); Protein, Urine (Dipstick) Negative (Neg-Trace); Urobilinogen 0.2 mg/dL (Less than 2); pH, Urine 5.5 (5.0-9.0)
[2020-06-21] LABS: Bacteria/HPF 1+ HPF (None Seen); Squamous Epithelial 0-3 HPF (0-3)
[2020-06-21 00:16] LABS: Amphetamine Not Detected (NotDetected); Barbiturates Screen Not Detected (NotDetected); Benzodiazepine Screen Not Detected (NotDetected); Cocaine Metabolite Screen Not Detected (NotDetected); Medtox Control Line Valid? VALID (VALID); Methadone Not Detected (NotDetected); Methamphetamine Not Detected (NotDetected); Opiate Screen Not Detected (NotDetected); Oxycodone Screen Not Detected (NotDetected); Phencyclidine (PCP) Not Detected (NotDetected); THC/Cannabinoid Screen Not Detected (NotDetected); Tricyclic Screen Not Detected (NotDetected)
[2020-06-21 00:24] LABS: #Basophils 0.1 thou/uL (0.0-0.2); #Eosinphils 0.2 thou/uL (0.0-0.7); #Lymphocytes 2.4 thou/uL (1.20-3.40); #Monocytes 0.8 thou/uL (0.11-0.59); %Eosinophils 1.2 % (0.0-10.0); %Monocytes 5.6 % (0.0-10.0); %Neutrophils 74.2 % (42.0-75.0); Hemoglobin 11.7 g/dL (12.0-16.0); Mean Corpuscular HGB CONC 31.9 g/dL (32.0-36.0); Mean Corpuscular Hemoglobin 26.9 pg (27.0-31.0); Mean Corpuscular Volume 84.2 fL (78.0-98.0); Mean Platelet Volume 8.6 fL (7.4-10.4); Platelet Count 292 thou/uL (130-400); Red Blood Cell (RBC) Count 4.36 mill/uL (4.20-5.40); White Blood Cell (WBC) Count 13.4 thou/uL (4.8-10.8)
[2020-06-21 00:26] LABS: BHCG - Serum Negative (NEGATIVE); Pregs Control Background? CLEAR/WHITE (CLR/WHITE); Pregs Control Bar Appear? YES (CONTROL BAR)
[2020-06-21 00:33] LABS: ALT (SGPT) 10 U/L (8-55); AST (SGOT) 12 U/L (5-34); Albumin 3.9 g/dL (3.5-5.0); Alkaline Phosphatase 109 U/L (40-110); Anion Gap 15 mmol/L (10-20); BUN (Urea Nitrogen) 9 mg/dL (7.0-18.7); Bilirubin, Total Less than 0.2 mg/dL (0.2-1.2); CK (CPK) 86 U/L (29-168); Calc. Creatinine Clearance 0 mL/min (70-130); Calcium 8.7 mg/dL (7.8-10.44); Carbon Dioxide 23 mmol/L (22-29); Chloride 105 mmol/L (98-107); Globulin 3.6 g/dL (2.4-3.5); Glucose 101 mg/dL (70-105); Potassium 3.5 mmol/L (3.5-5.1); Protein, Total 7.5 g/dL (6.0-8.3); Sodium 139 mmol/L (136-145)
[2020-06-21 00:34] LABS: Acetaminophen Less than 6.0 mcg/mL (10.0-30.0); Alcohol Less than 10 mg/dL (Less than 10); Salicylate Less than 8.0 mg/dL (15.0-30.0)
[2020-06-21] MEDS ORDERED: Acetaminophen 325 MG TAB ONE (00:54)
--- NOTE | 2020-06-21 07:09 | RAD ---
PORTABLE CHEST: Date: 06/21/2020 An AP portable film at 0029 hours is compared with the 04/16/2019 study. The heart remains normal in size and the lungs are clear. There is no mediastinal widening or shift. The lungs are fully inflated and there are no signs of pleural effusions or pneumothorax. No fracture s detected. IMPRESSION: No acute thoracic finding. POS: HOME
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
== END 2020-06-21 01:00 | disposition home or self-care (01) ==
LOC: BURERS 23:24
DX: S00.83XA Contusion of other part of head, initial encounter (principal); R07.89 Other chest pain; E10.9 Type 1 diabetes mellitus without complications; F41.9 Anxiety disorder, unspecified; F32.9 Major depressive disorder, single episode, unspecified; F20.9 Schizophrenia, unspecified; F17.210 Nicotine dependence, cigarettes, uncomplicated; Z79.899 Other long term (current) drug therapy; Y04.8XXA Assault by other bodily force, initial encounter
CPT/HCPCS: 70450; 70486; 71045; 80053; 80306; 80307; 81003; 81015; 82550; 84443; 84703; 93005

== ENCOUNTER 2021-01-09 10:14 | Emergency (ER) | payer OTHER ==
[2021-01-09] MEDS ORDERED: Ondansetron ODT 4 MG TAB ONE (10:42)
[2021-01-09 11:04] LABS: Bilirubin Negative (Negative); Blood, Urine Moderate (Negative); Clarity Slightly Cloudy (Clear); Glucose, Urine (Dipstick) Negative (Negative); Ketone, Urine Negative (Negative); Leukocyte Trace (Negative); Nitrite Negative (Negative); Protein, Urine (Dipstick) Negative (Neg-Trace); Specific Gravity, Urine 1.015 (1.005-1.030); Urobilinogen 0.2 mg/dL (Less than 2)
[2021-01-09 11:05] LABS: Pregnancy Test - Urine (BHCG) Negative (Negative); Pregu Control Background? CLEAR/WHITE (CLR/WHITE); Pregu Control Bar Appear? YES (CONTROL BAR); Specific Gravity 1.015 (1.002-1.036)
[2021-01-09 11:28] LABS: Bacteria/HPF 2+ HPF (None Seen); RBC/HPF 0-3 HPF (0-3); Squamous Epithelial 0-3 HPF (0-3); WBC/HPF 0-3 HPF (0-3)
[2021-01-09 22:52] LABS: SARS-CoV-2 PCR by NAA Not Detected (NotDetected)
== END 2021-01-09 11:50 | disposition home or self-care (01) ==
LOC: BURERS 10:14
DX: R19.7 Diarrhea, unspecified (principal); R11.2 Nausea with vomiting, unspecified; E10.9 Type 1 diabetes mellitus without complications; F17.210 Nicotine dependence, cigarettes, uncomplicated; Z20.822 Contact with and (suspected) exposure to COVID-19
CPT/HCPCS: 81003; 81015; 81025; 87635; 99284; Q0162; U0003; U0005

== ENCOUNTER 2021-08-29 15:34 | Outpatient (CLI) | payer OTHER | END 2021-08-29 15:35 | disposition home or self-care (01) | LOC: BURRAD 15:34 | PROVIDERS: ATTEND Family Medicine | DX: R09.1 Pleurisy (principal) | CPT/HCPCS: 71046 ==

== ENCOUNTER 2022-04-17 17:52 | Emergency (ER) | payer OTHER ==
[2022-04-17 18:38] LABS: #Basophils 0.1 thou/uL (0.0-0.2); #Eosinphils 0.1 thou/uL (0.0-0.7); #Lymphocytes 3.1 thou/uL (1.20-3.40); #Monocytes 0.6 thou/uL (0.11-0.59); #Neutrophils 8.5 thou/uL (1.40-6.50); %Basophils 0.7 % (0.0-1.0); %Eosinophils 0.4 % (0.0-10.0); %Lymphocytes 25.3 % (21.0-51.0); %Monocytes 5.1 % (0.0-10.0); %Neutrophils 68.5 % (42.0-75.0); Hemoglobin 11.7 g/dL (12.0-16.0); Mean Corpuscular HGB CONC 31.7 g/dL (32.0-36.0); Mean Corpuscular Hemoglobin 26.3 pg (27.0-31.0); Mean Corpuscular Volume 82.7 fL (78.0-98.0); Mean Platelet Volume 7.4 fL (7.4-10.4); Platelet Count 284 thou/uL (130-400); RBC Distribution Width 14.9 % (11.5-14.5); Red Blood Cell (RBC) Count 4.45 mill/uL (4.20-5.40); White Blood Cell (WBC) Count 12.3 thou/uL (4.8-10.8)
[2022-04-17 18:55] LABS: ALT (SGPT) 15 U/L (8-55); AST (SGOT) 12 U/L (5-34); Albumin 4.1 g/dL (3.5-5.0); Alkaline Phosphatase 86 U/L (40-110); Anion Gap 14 mmol/L (10-20); BUN (Urea Nitrogen) 12 mg/dL (7.0-18.7); Bilirubin, Total 0.3 mg/dL (0.2-1.2); Calc. Creatinine Clearance 0 mL/min (70-130); Calcium 9.1 mg/dL (7.8-10.44); Carbon Dioxide 22 mmol/L (22-29); Chloride 106 mmol/L (98-107); Estimated GFR 99; Glucose 100 mg/dL (70-105); Potassium 3.2 mmol/L (3.5-5.1); Protein, Total 7.1 g/dL (6.0-8.3); Sodium 139 mmol/L (136-145)
[2022-04-17] MEDS ORDERED: Dicyclomine 20 MG TAB ONE (19:16)
[2022-04-17] MEDS ORDERED: Ketorolac Tromethamine 30 MG/ML VIAL ONE (19:16)
[2022-04-17 19:29] LABS: Bilirubin Negative (Negative); Blood, Urine Trace (Negative); Clarity Cloudy (Clear); Glucose, Urine (Dipstick) Negative (Negative); Ketone, Urine Negative (Negative); Leukocyte Small (Negative); Nitrite Positive (Negative); Protein, Urine (Dipstick) Negative (Neg-Trace); Urobilinogen 0.2 mg/dL (Less than 2)
[2022-04-17 19:30] LABS: RBC/HPF None Seen HPF (0-3)
[2022-04-17] MEDS ORDERED: Ondansetron PF 4 MG/2 ML Vial ONE (19:30)
[2022-04-17 19:31] LABS: Bacteria/HPF 4+ HPF (None Seen); Pregnancy Test - Urine (BHCG) Negative (Negative); Pregu Control Background? CLEAR/WHITE (CLR/WHITE); Pregu Control Bar Appear? YES (CONTROL BAR); Squamous Epithelial None Seen HPF (0-3)
[2022-04-17] MEDS ORDERED: Sulfameth/Trimethoprim DS 800-160mg TAB ONE (19:48)
[2022-04-17] MEDS ORDERED: Potassium Chloride 20 MEQ/100 ML PREMIX BAG ONE (19:50)
== END 2022-04-17 21:24 | disposition home or self-care (01) ==
LOC: BURERS 17:52
DX: N30.01 Acute cystitis with hematuria (principal); G43.909 Migraine, unspecified, not intractable, without status migrainosus; R07.9 Chest pain, unspecified; G89.29 Other chronic pain; R11.2 Nausea with vomiting, unspecified; E87.6 Hypokalemia; E10.9 Type 1 diabetes mellitus without complications; F17.210 Nicotine dependence, cigarettes, uncomplicated; Z79.899 Other long term (current) drug therapy; Z79.84 Long term (current) use of oral hypoglycemic drugs
CPT/HCPCS: 71045; 80053; 81003; 81015; 81025; 85025; 93005; J1885; J2405; J3480

== ENCOUNTER 2022-07-02 15:53 | Emergency (ER) | payer OTHER ==
[2022-07-02 16:20] LABS: #Basophils 0.1 thou/uL (0.0-0.2); #Eosinphils 0.1 thou/uL (0.0-0.7); #Lymphocytes 2.8 thou/uL (1.20-3.40); #Monocytes 0.6 thou/uL (0.11-0.59); #Neutrophils 7.5 thou/uL (1.40-6.50); %Basophils 0.8 % (0.0-1.0); %Eosinophils 0.8 % (0.0-10.0); %Lymphocytes 25.3 % (21.0-51.0); %Monocytes 5.6 % (0.0-10.0); %Neutrophils 67.5 % (42.0-75.0); Mean Corpuscular HGB CONC 31.9 g/dL (32.0-36.0); Mean Corpuscular Hemoglobin 26.5 pg (27.0-31.0); Mean Corpuscular Volume 82.9 fL (78.0-98.0); Mean Platelet Volume 7.1 fL (7.4-10.4); Platelet Count 322 thou/uL (130-400); RBC Distribution Width 14.8 % (11.5-14.5); Red Blood Cell (RBC) Count 4.55 mill/uL (4.20-5.40); White Blood Cell (WBC) Count 11.2 thou/uL (4.8-10.8)
[2022-07-02] MEDS ORDERED: Ondansetron PF 4 MG/2 ML Vial ONE ×2 (16:25→16:26)
[2022-07-02 16:38] LABS: ALT (SGPT) 17 U/L (8-55); AST (SGOT) 14 U/L (5-34); Albumin 4.1 g/dL (3.5-5.0); Alkaline Phosphatase 92 U/L (40-110); Anion Gap 14 mmol/L (10-20); BUN (Urea Nitrogen) 10 mg/dL (7.0-18.7); Bilirubin, Total 0.3 mg/dL (0.2-1.2); Calc. Creatinine Clearance 0 mL/min (70-130); Calcium 9.3 mg/dL (7.8-10.44); Carbon Dioxide 25 mmol/L (22-29); Chloride 103 mmol/L (98-107); Estimated GFR 101; Globulin 3.7 g/dL (2.4-3.5); Glucose 103 mg/dL (70-105); Lipase 40 U/L (8-78); Potassium 3.6 mmol/L (3.5-5.1); Protein, Total 7.8 g/dL (6.0-8.3); Sodium 138 mmol/L (136-145)
[2022-07-02] MEDS ORDERED: clonazePAM 0.5 MG TAB PO SCH (16:45)
[2022-07-02 16:49] LABS: BHCG - Serum Negative (NEGATIVE); Pregs Control Background? CLEAR/WHITE (CLR/WHITE); Pregs Control Bar Appear? YES (CONTROL BAR)
== END 2022-07-02 17:04 | disposition home or self-care (01) ==
LOC: BURERS 15:53
DX: R11.2 Nausea with vomiting, unspecified (principal); E11.9 Type 2 diabetes mellitus without complications; Z87.891 Personal history of nicotine dependence; Z79.84 Long term (current) use of oral hypoglycemic drugs
CPT/HCPCS: 80053; 83690; 84703; 85025; 93005; 96374; J2405